=== PATIENT | female | born 1970 | race Two or more races ===

== ENCOUNTER 2022-10-04 09:08 | Emergency (ER) | payer OTHER ==
[2022-10-04 09:38] VITALS: BP 105/66; PULSE 75; RESP 18; TEMP 97.8; BMI 41.3
== END 2022-10-04 10:10 | disposition home or self-care (01) ==
LOC: JER 09:08
DX: T88.7XXA Unspecified adverse effect of drug or medicament, initial encounter (principal); R53.83 Other fatigue; R42 Dizziness and giddiness
CPT/HCPCS: 99282-25

== ENCOUNTER 2023-11-23 07:13 | Emergency (ER) | payer OTHER ==
[2023-11-23 07:40] VITALS: RESP 18; TEMP 97.9; BMI 34.7
[2023-11-23] MEDS ORDERED: valACYclovir HCL 500 MG TABLET (FP) PO ONE (08:40)
[2023-11-23 08:42] VITALS: BP 165/72; PULSE 69
[2023-11-23 14:12] LABS: HIV INTERPRETATION NEGATIVE (NEGATIVE)
== END 2023-11-23 09:23 | disposition home or self-care (01) ==
LOC: JER 07:13
DX: R21 Rash and other nonspecific skin eruption (principal); B02.9 Zoster without complications; L29.9 Pruritus, unspecified
CPT/HCPCS: 36415; 86803; 87389; 99283-25